=== PATIENT | male | born 1950 | race Caucasian/White ===

== ENCOUNTER → 2016-10-28 | Outpatient (CLI) | payer MEDICARE ==
[~2016-10-28] MED LIST: ALBU8.5H3 INH; ATOR40TA PO; BENA10TA2 PO; BUPR150T73 PO; CA C1TAB62 PO; DILT240C77 PO; META800T21 PO; OMEP40CA3 PO; RIVA20TA PO; SITA100T PO; TADA20TA PO; TERA5CAP3 PO; TRAM50TA2 PO
== END | disposition home or self-care (01) ==
LOC: ROC 13:20
PROVIDERS: ATTEND Radiology Radiation Oncology
DX: C34.32 Malignant neoplasm of lower lobe, left bronchus or lung (principal)
CPT/HCPCS: G0463

== ENCOUNTER → 2018-03-30 | Outpatient (CLI) | payer MEDICARE ==
[~2018-03-30] MED LIST changes: -ALBU8.5H3 INH; +ALBU8.5H8 INH; -BENA10TA2 PO; +BENA10TA4 PO; +META-23 PO; -META800T21 PO
== END | disposition home or self-care (01) ==
LOC: ROC 08:18
PROVIDERS: ATTEND Radiology Radiation Oncology
DX: Z02.9 Encounter for administrative examinations, unspecified (principal)